=== PATIENT | female | born 1975 | race Caucasian/White ===

== ENCOUNTER 2020-12-21 17:19 | Emergency (ER) | payer OTHER ==
[~2020-12-21] VITALS: Ht 157.5 cm; Wt 68.0 kg
--- NOTE | 2020-12-21 18:10 | EKG ---
[address] [address] Test Date: 2020-12-21 Test Time: 17:57:00 Pat Name: GARY MACIAS Department: Room: Gender: F Judicial Reporter: BLAIR : 1975 Requested By: LELAND RO Order Number: [id number] Reading MD: Measurements Intervals [place] Rate: 75 P: 66 FL: 136 QRS: -26 QRSD: 84 T: 22 QT: 410 QTc: 461 Interpretive Statements SINUS RHYTHM LEFTWARD AXIS OTHERWISE NORMAL ECG RI6.02 No previous ECG available for comparison
--- NOTE | 2020-12-21 18:11 | PHYS DOC ---
Past History Past Surgical History: Hysterectomy Additional Past Surgical Histo: thyroid, hernia, nasal surgery General Adult EDM: Chief Complaint: ABDOMINAL PAIN HPI: HPI: 45 Patient is a 45 year old female who presents with above hx and abdomen pain. Pt. follows with Dr. George. Review of Systems: Review of Systems: Constitutional: Denies fever or chills Eyes: Denies change in visual acuity HENT: Denies nasal congestion or sore throat Respiratory: Denies cough or shortness of breath Cardiovascular: Denies chest pain or edema GI: Denies abdominal pain, nausea, vomiting, bloody stools or diarrhea : Denies dysuria Musculoskeletal: Denies back pain or joint pain Integument: Denies rash Neurologic: Denies headache, focal weakness or sensory changes Endocrine: Denies polyuria or polydipsia Lymphatic: Denies swollen glands Psychiatric: Denies depression or anxiety Allergies: Allergies: Allergies Coded Allergies Type Severity Reaction Last Updated Verified No Known Drug Allergies 12/21/20 No Physical Exam: PE: Constitutional: Well developed, well nourished, no acute distress, non-toxic appearance. [] HENT: Normocephalic, atraumatic, bilateral external ears normal, oropharynx moist, no oral exudates, nose normal. [] Eyes: PERRLA, EOMI, conjunctiva normal, no discharge. [] Neck: Normal range of motion, no tenderness, supple, no stridor. [] Cardiovascular:Heart rate regular rhythm, no murmur [] Lungs & Thorax: Bilateral breath sounds clear to auscultation [] Abdomen: Bowel sounds normal, soft, no tenderness, no masses, no pulsatile masses. [] Skin: Warm, dry, no erythema, no rash. [] Back: No tenderness, no CVA tenderness. [] Extremities: No tenderness, no cyanosis, no clubbing, ROM intact, no edema. [] Neurologic: Alert and oriented X 3, normal motor function, normal sensory function, no focal deficits noted. [] Psychologic: Affect normal, judgement normal, mood normal. [] Current Patient Data: Vital Signs: Vital Signs Date Time Temp Pulse Resp B/P (MAP) Pulse Ox O2 Delivery O2 Flow Rate FiO2 12/21/20 17:54 99.9 81 16 157/102 99 Room Air EKG: EKG: [] Radiology/Procedures: Radiology/Procedures: [] Heart Score: Risk Factors: Risk Factors: DM, Current or recent (<one month) smoker, HTN, HLP, family history of CAD, obesity. Risk Scores: Score 0 - 3: 2.5% MACE over next 6 weeks - Discharge Home Score 4 - 6: 20.3% MACE over next 6 weeks - Admit for Clinical Observation Score 7 - 10: 72.7% MACE over next 6 weeks - Early Invasive Strategies Course & Med Decision Making: Course & Med Decision Making Pertinent Labs and Imaging studies reviewed. (See chart for details) [] Dragon Disclaimer: Dragon Disclaimer: This electronic medical record was generated, in whole or in part, using a voice recognition dictation system. Departure Departure: Referrals: JILLIAN GEORGE MD (PCP) LELAND RO MD Dec 21, 2020 18:11
[2020-12-21 19:42] LABS: BARBITURATES NEG (NEG); BENZODIAZEPINES NEG (NEG); CANNABINOIDS NEG (NEG); COCAINE NEG (NEG); METHADONE NEG (NEG); OPIATES NEG (NEG); PHENCYCLIDINE NEG (NEG)
[2020-12-21 19:43] LABS: AMPHETAMINE/METHAMPHETAMINE NEG (NEG)
[2020-12-21 20:01] LABS: BILIRUBIN,URINE NEG (NEG); CLARITY,URINE CLEAR; COLOR,URINE YELLOW; GLUCOSE,URINE NEG (NEG)
[2020-12-21 20:02] LABS: BACTERIA,URINE 0 /HPF (0-FEW); NITRITE,URINE NEG (NEG); UROBILINOGEN,URINE 0.2 mg/dL (0.2 mg/dL); WBC,URINE 0 /HPF (0-4)
[2020-12-21] MEDS ORDERED: KETOROLAC 30 MG/ML VIAL. IVP ONE (20:15)
[2020-12-21] MEDS ORDERED: CONTRAST GIVEN. MC PRN (21:00)
[2020-12-21] MEDS ORDERED: IOHEXOL 300 MG/ML 75 ML VIAL. IV ONE (21:30)
[2020-12-21] MEDS ORDERED: IOHEXOL 240 MG/ML 50ML VIAL. PO ONE (21:30)
--- NOTE | 2020-12-21 22:59 | RAD ---
EXAMINATION: CT abdomen and pelvis with IV contrast. INDICATION:45 years, Female, abdominal pain, history of hernia and hysterectomy.. TECHNIQUE: Axial CT images of the abdomen and pelvis were obtained. Coronal and sagittal reformatted performed. COMPARISON: None. Exposure: One or more of the following individualized dose reduction techniques were utilized for thi s examination: 1. Automated exposure control 2. Adjustment of the mA and/or kV according to patient size 3. Use of iterative reconstruction technique. FINDINGS: LOWER CHEST: Unremarkable ABDOMEN/PELVIS: Mild hepatomegaly measures up to 17 cm in length. There is a 5.3 x 4.0 cm ill-defined lobulated soft tissue mass exophytic from hepatic segment 3, appears isodense to the liver parenchyma with central h ypodensity (series 3 image 13 and series 2 image 19). Spleen, gallbladder, biliary ducts and adrenals are unremarkable. Mildly atrophic pancreas with fat i nfiltration. Partially duplicated right renal collecting system. No hydronephrosis or nephrolithiasis in either kidney. No bowel obstruction or wall thickening. Normal appendix. Normal caliber abdominal aorta. Mesenteric arteries and portal vein are patent. No lymphadenopathy in the abdomen or pelvis b y size criteria. No pneumoperitoneum or ascites. Unremarkable urinary bladder. Hysterectomy. Two subj acent left adnexal cysts with thick wall measures 1.6 cm. MUSCULOSKELETAL: No acute osseous process. No abdominal wall hernia. IMPRESSION: 1. No acute intra-abdominal findings. 2. A 5.3 cm ill-defined lobulated soft tissue mass exophytic from hepatic segment 3, appears isodens e to the liver parenchyma with central hypodensity. Findings may represent focal nodular hyperplasia versus adenoma Recommend further evaluation with nonemergent MRI liver protocol using hepatobiliary c ontrast (Eovist). 3. Two subjacent left adnexal cysts with thick wall measures 1.6 cm. Recommend further evaluation [facility] nonemergent ultrasound pelvis. Electronically signed by: Dickson Hernandez MD (12/21/2020 10:57 PM) [facility]
[2020-12-22 01:36] LABS: BASO % 1 % (0-3); EOS # 0.1 x10^3/uL (0.0-0.7); EOS % 1 % (0-3); HEMATOCRIT 41.4 % (36.0-47.0); HEMOGLOBIN 14.4 g/dL (12.0-15.5); LYMPH # 2.4 x10^3/uL (1.0-4.8); LYMPH % 30 % (24-48); MEAN CORPUSCULAR HEMOGLOBIN 33 pg (25-35); MEAN CORPUSCULAR HGB CONC 35 g/dL (31-37); MEAN CORPUSCULAR VOLUME 94 fL (79-100); MONO # 0.3 x10^3/uL (0.0-1.1); MONO % 4 % (0-9); NEUT # 5.1 x10^3uL (1.8-7.7); NEUT % 64 % (31-73); PLATELET COUNT 219 x10^3/uL (140-400); RED BLOOD COUNT 4.43 x10^6/uL (3.50-5.40); RED CELL DISTRIBUTION WIDTH 12.3 % (11.5-14.5)
[2020-12-22 01:37] LABS: CALCIUM 8.6 mg/dL (8.5-10.1); CREATININE 0.6 mg/dL (0.6-1.0); GFR 108.6; POTASSIUM 4.2 mmol/L (3.5-5.1)
[2020-12-22 01:43] LABS: ALBUMIN 4.6 g/dL (3.4-5.0); DIRECT BILIRUBIN 0.2 mg/dL (0.0-0.2); TOTAL BILIRUBIN 0.6 mg/dL (0.2-1.0); TOTAL PROTEIN 7.8 g/dL (6.4-8.2)
[2020-12-22] MEDS ORDERED: FAMO-63 PO (02:19)
[2020-12-22] MEDS ORDERED: FAMOTIDINE 20 MG TABLET PO ONE (02:30)
[2020-12-22 02:35] VITALS: BP 150/107
== END 2020-12-22 02:35 | disposition home or self-care (01) ==
LOC: ER 17:19
DX: R10.10 Upper abdominal pain, unspecified (principal)
CPT/HCPCS: 36415; 74177; 80048; 80076; 80307; 81001; 82150; 83690; 85025; 93005; 96374; 99285; J1885; Q9966; Q9967